=== PATIENT | male | born 1955 | race Hispanic/Latino ===

== ENCOUNTER 2023-10-16 15:22 | Outpatient (CLI) | payer MEDICARE | END 2023-10-16 15:23 | disposition home or self-care (01) | LOC: CSHULT 15:22 | PROVIDERS: ATTEND Family Medicine | DX: R31.0 Gross hematuria (principal) | CPT/HCPCS: 76770 ==

== ENCOUNTER 2024-02-17 09:08 | Outpatient (CLI) | payer MEDICARE | END 2024-02-17 09:09 | disposition home or self-care (01) | LOC: CSHCT 09:08 | PROVIDERS: ATTEND Physician Assistant | DX: R09.81 Nasal congestion (principal) ==